=== PATIENT | female | born 1945 | race Caucasian/White ===

== ENCOUNTER 2018-07-03 09:06 | Inpatient (IN) | payer MEDICARE ==
[2018-07-03] VITALS (8 sets, daily range): BP systolic 123–168; BP diastolic 65–75
[~2018-07-03] VITALS: Ht 157.5 cm; Wt 58.7 kg
[~2018-07-03 09:06] MED LIST: ATEN100T PO; ATEN50TA41 PO; BUDE10.2 INH; DIAZ10TA4 PO; ESTR1PAT66 EXT; FURO20TA3 PO; HYDR-3237 PO; HYDR-3343 PO; LISI-170 PO; METO25TA91 PO; PANT20TA2 PO; PANT40TA5 PO; POTA20PA25 PO; POTA20TA14 PO; PRED10TA PO; PRED20TA PO; SERT50TA5 PO; UMEC1DIS INH
[2018-07-03] MEDS ORDERED: SODIUM CHLORIDE 0.9% 1,000 ML IV ONE (09:08)
[2018-07-03] MEDS ORDERED: SODIUM CHLORIDE FLUSH 10ML SYR IVF ONE (09:30)
[2018-07-03 09:52] LABS: INTERNATIONAL NORMALIZED RATIO 1.27 (0.93-1.1); PROTHROMBIN TIME 13.1 Seconds (9.6-11.5)
[2018-07-03 09:56] LABS: ALBUMIN 2.6 g/dL (3.4-5.0); ANION GAP 12 mmol/L (5-15); CALCIUM 8.8 mg/dL (8.5-10.1); CHLORIDE 103 mmol/L (98-107)
[2018-07-03] MEDS ORDERED: PANTOPRAZOLE 80 MG in SODIUM CHLORIDE 0.9% 50 ML IVPB ONE (10:00)
[2018-07-03 10:04] LABS: ALANINE AMINOTRANSFERASE 19 U/L (12-78); ALKALINE PHOSPHATASE 84 U/L (45-117); BILIRUBIN,TOTAL 0.5 mg/dL (0.2-1.0); CREATININE 1.51 mg/dL (0.55-1.02); TOTAL PROTEIN 6.3 g/dL (6.4-8.2)
[2018-07-03 10:06] LABS: MEAN CORPUSCULAR HEMOGLOBIN 25.3 pg (27.0-34.8); MEAN CORPUSCULAR HGB CONC 31.8 g/dL (32.4-35.8); MEAN CORPUSCULAR VOLUME 79.4 fL (80-100); MEAN PLATELET VOLUME 8.5 fL (7.4-10.4); PLATELET COUNT 456 x10^3/uL (130-400); RED BLOOD COUNT 3.27 x10^6/uL (3.82-5.3); RED CELL DISTRIBUTION WIDTH 22.7 % (9.6-15.2)
[2018-07-03] MEDS ORDERED: FURO20TA3 PO (10:06)
[2018-07-03] MEDS ORDERED: ALBU8.5H8 INH (10:06)
[2018-07-03] MEDS ORDERED: NAPR220C2 PO (10:23)
[2018-07-03 10:27] LABS: BASOPHILS # (AUTO) 0.02 x10^3/uL (0-0.1); BASOPHILS % (AUTO) 0 % (0-1); EOSINOPHILS # (AUTO) 0.19 x10^3/uL (0-0.4); EOSINOPHILS % (AUTO) 1 % (1-7); LYMPHOCYTES # (AUTO) 1.84 x10^3/uL (1-3.4); LYMPHOCYTES % (AUTO) 12 % (22-44); MD MORPH REVIEW ONLY; MONOCYTES # (AUTO) 0.54 x10^3/uL (0.2-0.8); MONOCYTES % (AUTO) 4 % (2-9); NEUTROPHILS # (AUTO) 12.43 x10^3/uL (1.8-6.8); NEUTROPHILS % (AUTO) 83 % (42-75)
[2018-07-03 10:30] LABS: ANISOCYTOSIS 1+; HYPOCHROMIA 1+; MICROCYTOSIS 1+
[2018-07-03] MEDS ORDERED: CEFTRIAXONE PMX 1GM/50ML 50 ML IV ONE (10:30)
[2018-07-03] MEDS ORDERED: PANTOPRAZOLE 80 MG in SODIUM CHLORIDE 0.9% 100 ML IV SCH (10:30)
[2018-07-03] MEDS ORDERED: SODIUM CHLORIDE 0.9%, 500ML IVBOLUS ONE (10:30)
[2018-07-03 10:31] LABS: <PLATELET ESTIMATE> INCREASED
[2018-07-03 10:32] LABS: LARGE PLATELETS 1+
[2018-07-03 10:33] LABS: OVALOCYTES 1+; STOMATOCYTES 1+
[2018-07-03] MEDS ORDERED: CEFTRIAXONE PMX 1GM/50ML 50 ML ONE (10:51)
[2018-07-03] MEDS ORDERED: ONDANSETRON ODT 4 MG PO PRN (12:30)
[2018-07-03] MEDS ORDERED: ONDANSETRON 2MG/ML, 2ML IVPush PRN (12:30)
[2018-07-03 13:49] LABS: THYROID STIMULATING HORMONE 2.19 mIU/L (0.358-3.740)
[2018-07-03] MEDS ORDERED: FENTANYL PF 100 MCG/2ML ONE ×2 (15:28→16:09)
[2018-07-03] MEDS ORDERED: PROPOFOL 10 MG/ML, 20ML ONE (15:28)
[2018-07-03] MEDS ORDERED: MIDAZOLAM 1 MG/ML, 2ML ONE (15:28)
[2018-07-03] MEDS ORDERED: OXYcodone 5 MG/5 ML ORAL.SOL UDC PO PRN (16:00)
[2018-07-03] MEDS ORDERED: MEPERIDINE/PF 25MG/0.5ML IVPush PRN (16:00)
[2018-07-03] MEDS ORDERED: HALOPERIDOL 5 MG/ML IV PRN (16:00)
[2018-07-03] MEDS ORDERED: ACETAMINOPHEN 325 MG TABLET PO PRN (16:00)
[2018-07-03] MEDS ORDERED: HYDROmorphone 2 MG/ML, 1ML IV PRN (16:00)
[2018-07-03] MEDS ORDERED: ONDANSETRON 2MG/ML, 2ML IV PRN (16:00)
[2018-07-03] MEDS: FENTANYL PF 100 MCG/2ML IV PRN ×2 (16:10→16:15)
[2018-07-03] MEDS ORDERED: HALOPERIDOL 5 MG/ML ONE (16:20)
[2018-07-03] MEDS ORDERED: LORazepam 2 MG/ML, 1ML ONE (16:20)
[2018-07-03] MEDS: CEFTRIAXONE 1,000 MG in SODIUM CHLORIDE 0.9% 50 ML IV SCH (20:55)
[2018-07-03] MEDS: NS + 20MEQ KCL 1,000 ML IV SCH (20:55)
[2018-07-04 02:13] VITALS: BP 136/65
[2018-07-04 06:01] LABS: CALCIUM 8.1 mg/dL (8.5-10.1); CHLORIDE 113 mmol/L (98-107)
[2018-07-04 06:04] LABS: ANION GAP 10 mmol/L (5-15)
[2018-07-04 06:06] LABS: MEAN CORPUSCULAR HEMOGLOBIN 28.2 pg (27.0-34.8); MEAN CORPUSCULAR HGB CONC 33.2 g/dL (32.4-35.8); MEAN CORPUSCULAR VOLUME 84.8 fL (80-100); MEAN PLATELET VOLUME 8.1 fL (7.4-10.4); PLATELET COUNT 277 x10^3/uL (130-400); RED BLOOD COUNT 2.97 x10^6/uL (3.82-5.3); RED CELL DISTRIBUTION WIDTH 18.2 % (9.6-15.2)
[2018-07-04 06:43] VITALS: BP 159/77
[2018-07-04 07:09] LABS: BASOPHILS # (AUTO) 0.01 x10^3/uL (0-0.1); BASOPHILS % (AUTO) 0 % (0-1); EOSINOPHILS # (AUTO) 0.08 x10^3/uL (0-0.4); EOSINOPHILS % (AUTO) 1 % (1-7); LYMPHOCYTES # (AUTO) 1.98 x10^3/uL (1-3.4); LYMPHOCYTES % (AUTO) 22 % (22-44); MD SCAN; MONOCYTES # (AUTO) 0.44 x10^3/uL (0.2-0.8); MONOCYTES % (AUTO) 5 % (2-9); NEUTROPHILS # (AUTO) 6.42 x10^3/uL (1.8-6.8); NEUTROPHILS % (AUTO) 72 % (42-75)
[2018-07-04] MEDS: NS + 20MEQ KCL 1,000 ML IV SCH (08:53)
[2018-07-04] MEDS ORDERED: PANTOPRAZOLE 80 MG in SODIUM CHLORIDE 0.9% 50 ML IV ONE (09:30)
[2018-07-04] MEDS ORDERED: MAGNESIUM SULFATE PMX 2GM/50ML 50 ML IV ONE (10:00)
[2018-07-04] MEDS: PANTOPRAZOLE 80 MG in SODIUM CHLORIDE 0.9% 100 ML IV SCH (11:11)
[2018-07-04 13:16] VITALS: BP 187/75
[2018-07-04] MEDS: ACETAMINOPHEN 325 MG TABLET PO PRN (14:37)
[2018-07-04 18:49] VITALS: BP 172/72
[2018-07-04 20:55] VITALS: BP 181/68
[2018-07-04] MEDS: CEFTRIAXONE 1,000 MG in SODIUM CHLORIDE 0.9% 50 ML IV SCH (21:00)
[2018-07-04] MEDS: hydrALAzine 20 MG/ML, 1ML IVPush PRN (21:00)
[2018-07-04 21:20] VITALS: BP 167/70
[2018-07-05 00:28] VITALS: BP 146/61
[2018-07-05] MEDS: NS + 20MEQ KCL 1,000 ML IV SCH ×3 (01:01→20:27)
[2018-07-05] MEDS: PANTOPRAZOLE 80 MG in SODIUM CHLORIDE 0.9% 100 ML IV SCH ×3 (01:02→20:27)
[2018-07-05 05:44] LABS: BASOPHILS # (AUTO) 0.01 x10^3/uL (0-0.1); BASOPHILS % (AUTO) 0 % (0-1); EOSINOPHILS % (AUTO) 4 % (1-7); LYMPHOCYTES # (AUTO) 1.59 x10^3/uL (1-3.4); LYMPHOCYTES % (AUTO) 21 % (22-44); MD NO; MEAN CORPUSCULAR HEMOGLOBIN 27.6 pg (27.0-34.8); MEAN CORPUSCULAR VOLUME 83.7 fL (80-100); MEAN PLATELET VOLUME 7.7 fL (7.4-10.4); MONOCYTES # (AUTO) 0.46 x10^3/uL (0.2-0.8); MONOCYTES % (AUTO) 6 % (2-9); NEUTROPHILS # (AUTO) 5.37 x10^3/uL (1.8-6.8); NEUTROPHILS % (AUTO) 70 % (42-75); PLATELET COUNT 298 x10^3/uL (130-400); RED BLOOD COUNT 2.98 x10^6/uL (3.82-5.3); RED CELL DISTRIBUTION WIDTH 19.7 % (9.6-15.2)
[2018-07-05 05:45] LABS: ALBUMIN 2.2 g/dL (3.4-5.0); ANION GAP 9 mmol/L (5-15); CHLORIDE 112 mmol/L (98-107); CREATININE 0.66 mg/dL (0.55-1.02)
[2018-07-05] MEDS ORDERED: SODIUM PHOSPHATE 4 MEQ/ML IV SCH (06:30)
[2018-07-05] MEDS ORDERED: SODIUM PHOSPHATE 30 MMOL in SODIUM CHLORIDE 0.9% 500 ML IV ONE (06:30)
[2018-07-05 06:51] VITALS: BP 151/65
[2018-07-05] MEDS: FOLIC ACID 1 MG TABLET PO SCH (09:03)
[2018-07-05] MEDS: THIAMINE 100MG TABLET PO SCH (09:03)
[2018-07-05 12:23] VITALS: BP 168/75
[2018-07-05 19:00] VITALS: BP 151/71
[2018-07-05] MEDS: CEFTRIAXONE 1,000 MG in SODIUM CHLORIDE 0.9% 50 ML IV SCH (20:27)
[2018-07-05] MEDS: ACETAMINOPHEN 325 MG TABLET PO PRN (21:48)
[2018-07-06] MEDS: LORazepam 2 MG/ML, 1ML IVPush PRN ×2 (02:39→09:10)
[2018-07-06] MEDS: ACETAMINOPHEN 325 MG TABLET PO PRN (04:57)
[2018-07-06 06:29] VITALS: BP 208/89
[2018-07-06] MEDS: hydrALAzine 20 MG/ML, 1ML IVPush PRN (06:42)
[2018-07-06 07:16] LABS: BASOPHILS # (AUTO) 0.05 x10^3/uL (0-0.1); BASOPHILS % (AUTO) 1 % (0-1); EOSINOPHILS # (AUTO) 0.12 x10^3/uL (0-0.4); EOSINOPHILS % (AUTO) 2 % (1-7); LYMPHOCYTES # (AUTO) 1.65 x10^3/uL (1-3.4); LYMPHOCYTES % (AUTO) 21 % (22-44); MD NO; MEAN CORPUSCULAR HEMOGLOBIN 27.7 pg (27.0-34.8); MEAN CORPUSCULAR HGB CONC 33.1 g/dL (32.4-35.8); MEAN CORPUSCULAR VOLUME 83.8 fL (80-100); MEAN PLATELET VOLUME 7.6 fL (7.4-10.4); MONOCYTES # (AUTO) 0.38 x10^3/uL (0.2-0.8); MONOCYTES % (AUTO) 5 % (2-9); NEUTROPHILS # (AUTO) 5.67 x10^3/uL (1.8-6.8); NEUTROPHILS % (AUTO) 72 % (42-75); PLATELET COUNT 284 x10^3/uL (130-400); RED BLOOD COUNT 3.07 x10^6/uL (3.82-5.3); RED CELL DISTRIBUTION WIDTH 18.7 % (9.6-15.2)
[2018-07-06 07:28] LABS: ALBUMIN 2.4 g/dL (3.4-5.0); ANION GAP 8 mmol/L (5-15); CALCIUM 8.3 mg/dL (8.5-10.1); CHLORIDE 113 mmol/L (98-107)
[2018-07-06 07:31] LABS: ALANINE AMINOTRANSFERASE 19 U/L (12-78); ALKALINE PHOSPHATASE 75 U/L (45-117); BILIRUBIN,TOTAL 0.8 mg/dL (0.2-1.0); CREATININE 0.63 mg/dL (0.55-1.02); TOTAL PROTEIN 6.1 g/dL (6.4-8.2)
[2018-07-06] MEDS: PANTOPRAZOLE 80 MG in SODIUM CHLORIDE 0.9% 100 ML IV SCH ×2 (07:32→18:34)
[2018-07-06 09:00] VITALS: BP 165/79
[2018-07-06] MEDS: THIAMINE 100MG TABLET PO SCH (09:00)
[2018-07-06] MEDS: FOLIC ACID 1 MG TABLET PO SCH (09:09)
[2018-07-06] MEDS: NS + 20MEQ KCL 1,000 ML IV SCH (09:10)
[2018-07-06] MEDS ORDERED: HALOPERIDOL 5 MG/ML IM ONE (11:30)
[2018-07-06 12:09] VITALS: BP 171/77
[2018-07-06] MEDS: LABETALOL 5MG/ML, 20ML IVPush PRN (13:08)
[2018-07-06] MEDS ORDERED: LORazepam 2 MG/ML, 1ML IV PRN ×4 (14:30)
[2018-07-06] MEDS ORDERED: LORazepam 1MG TABLET PO PRN ×4 (14:30)
[2018-07-06] MEDS: LORazepam 0.5MG TABLET PO PRN ×2 (15:29→23:35)
[2018-07-06 16:14] VITALS: BP 168/80
[2018-07-06] MEDS: LORazepam 2 MG/ML, 1ML IV PRN (17:58)
[2018-07-06 19:26] VITALS: BP 114/71
[2018-07-06] MEDS: POTASSIUM CHLORIDE 20 MEQ, MAGNESIUM SULFATE 1 GM, FOLIC ACID 1 MG, THIAMINE 200 MG, MV... IV SCH ×3 (20:57→22:54)
[2018-07-06] MEDS: CEFTRIAXONE 1,000 MG in SODIUM CHLORIDE 0.9% 50 ML IV SCH (20:58)
[2018-07-07] VITALS (8 sets, daily range): BP systolic 132–227; BP diastolic 57–96
[2018-07-07] MEDS: LABETALOL 5MG/ML, 20ML IVPush PRN (02:57)
[2018-07-07] MEDS: PANTOPRAZOLE 80 MG in SODIUM CHLORIDE 0.9% 100 ML IV SCH ×2 (04:02→22:03)
[2018-07-07] MEDS: LORazepam 0.5MG TABLET PO PRN (04:02)
[2018-07-07] MEDS: hydrALAzine 20 MG/ML, 1ML IVPush PRN (06:40)
[2018-07-07] MEDS: FOLIC ACID 1 MG TABLET PO SCH (08:30)
[2018-07-07] MEDS: THIAMINE 100MG TABLET PO SCH (08:31)
[2018-07-07] MEDS ORDERED: PANTOPRAZOLE 40 MG IV IVPush SCH (09:00)
[2018-07-07] MEDS ORDERED: CHLORDIAZEPOXIDE 25 MG CAPSULE PO PRN (09:00)
[2018-07-07 09:03] LABS: BASOPHILS # (AUTO) 0.02 x10^3/uL (0-0.1); BASOPHILS % (AUTO) 0 % (0-1); EOSINOPHILS # (AUTO) 0.12 x10^3/uL (0-0.4); EOSINOPHILS % (AUTO) 1 % (1-7); LYMPHOCYTES # (AUTO) 1.35 x10^3/uL (1-3.4); LYMPHOCYTES % (AUTO) 15 % (22-44); MD NO; MEAN CORPUSCULAR HEMOGLOBIN 27.8 pg (27.0-34.8); MEAN CORPUSCULAR HGB CONC 33.2 g/dL (32.4-35.8); MEAN CORPUSCULAR VOLUME 83.9 fL (80-100); MEAN PLATELET VOLUME 7.6 fL (7.4-10.4); MONOCYTES # (AUTO) 0.33 x10^3/uL (0.2-0.8); MONOCYTES % (AUTO) 4 % (2-9); NEUTROPHILS % (AUTO) 80 % (42-75); PLATELET COUNT 378 x10^3/uL (130-400); RED BLOOD COUNT 4.21 x10^6/uL (3.82-5.3); RED CELL DISTRIBUTION WIDTH 19.8 % (9.6-15.2)
[2018-07-07 09:11] LABS: ALBUMIN 2.9 g/dL (3.4-5.0); ANION GAP 9 mmol/L (5-15); CALCIUM 9.1 mg/dL (8.5-10.1); CHLORIDE 113 mmol/L (98-107); CREATININE 0.85 mg/dL (0.55-1.02)
[2018-07-07] MEDS ORDERED: PANTOPROZOLE 40MG TABLET PO SCH (17:00)
[2018-07-07] MEDS: POTASSIUM CHLORIDE 20 MEQ, MAGNESIUM SULFATE 1 GM, FOLIC ACID 1 MG, THIAMINE 200 MG, MV... IV SCH (17:34)
[2018-07-07] MEDS ORDERED: SODIUM CHLORIDE 0.9% 1,000 ML IVBOLUS PRN (21:35)
[2018-07-07] MEDS: CEFTRIAXONE 1,000 MG in SODIUM CHLORIDE 0.9% 50 ML IV SCH (22:57)
[2018-07-08 00:12] VITALS: BP 125/48
[2018-07-08 01:40] VITALS: BP 126/64
[2018-07-08 01:56] VITALS: BP 132/68
[2018-07-08 02:10] VITALS: BP 140/88
[2018-07-08 04:00] VITALS: BP_SYST 130; BP_SYST 154; BP_DIAS 59; BP_DIAS 70
[2018-07-08] MEDS: LORazepam 2 MG/ML, 1ML IV PRN (04:32)
[2018-07-08] MEDS ORDERED: ALBUTEROL/IPRATROPIUM 2.5MG/0.5MG, 3 ML NPPB PRN (05:00)
[2018-07-08] MEDS ORDERED: ALBUTEROL SULFATE 2.5 MG/3 ML NPPB PRN (05:00)
[2018-07-08] MEDS: PANTOPRAZOLE 80 MG in SODIUM CHLORIDE 0.9% 100 ML IV SCH ×2 (06:24→17:36)
[2018-07-08] MEDS: hydrALAzine 20 MG/ML, 1ML IVPush PRN ×3 (06:32→18:37)
[2018-07-08] MEDS: SUCRALFATE 1 GM/10 ML UDC PO SCH ×4 (07:30→20:24)
[2018-07-08] MEDS: THIAMINE 100MG TABLET PO SCH (09:00)
[2018-07-08] MEDS: FOLIC ACID 1 MG TABLET PO SCH (09:00)
[2018-07-08] MEDS: ZIPRASIDONE 20 MG INJ IM PRN ×2 (11:50→14:15)
[2018-07-08] MEDS: LABETALOL 5MG/ML, 20ML IVPush PRN (22:13)
[2018-07-09] MEDS: PANTOPRAZOLE 80 MG in SODIUM CHLORIDE 0.9% 100 ML IV SCH ×2 (03:47→14:49)
[2018-07-09 04:00] VITALS: BP 171/65
[2018-07-09] MEDS: LABETALOL 5MG/ML, 20ML IVPush PRN ×3 (05:05→15:06)
[2018-07-09] MEDS: FOLIC ACID 1 MG TABLET PO SCH (08:09)
[2018-07-09] MEDS: SUCRALFATE 1 GM/10 ML UDC PO SCH ×4 (08:09→20:12)
[2018-07-09] MEDS: ZIPRASIDONE 20 MG INJ IM PRN ×2 (08:10→13:48)
[2018-07-09] MEDS: THIAMINE 100MG TABLET PO SCH (08:10)
[2018-07-09 08:15] LABS: BASOPHILS # (AUTO) 0.18 x10^3/uL (0-0.1); BASOPHILS % (AUTO) 2 % (0-1); EOSINOPHILS # (AUTO) 0.29 x10^3/uL (0-0.4); EOSINOPHILS % (AUTO) 2 % (1-7); LYMPHOCYTES # (AUTO) 1.48 x10^3/uL (1-3.4); LYMPHOCYTES % (AUTO) 13 % (22-44); MD NO; MEAN CORPUSCULAR HEMOGLOBIN 28.9 pg (27.0-34.8); MEAN CORPUSCULAR HGB CONC 33.4 g/dL (32.4-35.8); MEAN CORPUSCULAR VOLUME 86.6 fL (80-100); MEAN PLATELET VOLUME 8.4 fL (7.4-10.4); MONOCYTES # (AUTO) 0.73 x10^3/uL (0.2-0.8); MONOCYTES % (AUTO) 6 % (2-9); NEUTROPHILS # (AUTO) 9.11 x10^3/uL (1.8-6.8); NEUTROPHILS % (AUTO) 77 % (42-75); PLATELET COUNT 300 x10^3/uL (130-400); RED BLOOD COUNT 3.42 x10^6/uL (3.82-5.3)
[2018-07-09] MEDS: hydrALAzine 20 MG/ML, 1ML IVPush PRN ×2 (10:37→16:51)
[2018-07-10] MEDS: PANTOPRAZOLE 80 MG in SODIUM CHLORIDE 0.9% 100 ML IV SCH (01:43)
[2018-07-10 04:00] VITALS: BP 147/63
[2018-07-10] MEDS: LABETALOL 5MG/ML, 20ML IVPush PRN (05:16)
[2018-07-10] MEDS: THIAMINE 100MG TABLET PO SCH (10:04)
[2018-07-10] MEDS: FOLIC ACID 1 MG TABLET PO SCH (10:04)
[2018-07-10] MEDS: SUCRALFATE 1 GM/10 ML UDC PO SCH ×4 (10:05→21:21)
[2018-07-10] MEDS: PANTOPROZOLE 40MG TABLET PO SCH (17:16)
[2018-07-10 19:25] VITALS: BP 136/66
[2018-07-11 01:30] VITALS: BP 105/62
[2018-07-11 02:35] LABS: BASOPHILS # (AUTO) 0.07 x10^3/uL (0-0.1); BASOPHILS % (AUTO) 1 % (0-1); EOSINOPHILS # (AUTO) 0.23 x10^3/uL (0-0.4); EOSINOPHILS % (AUTO) 2 % (1-7); LYMPHOCYTES # (AUTO) 1.89 x10^3/uL (1-3.4); LYMPHOCYTES % (AUTO) 16 % (22-44); MD NO; MEAN CORPUSCULAR HEMOGLOBIN 29.4 pg (27.0-34.8); MEAN CORPUSCULAR HGB CONC 33.4 g/dL (32.4-35.8); MEAN CORPUSCULAR VOLUME 88.1 fL (80-100); MONOCYTES # (AUTO) 0.98 x10^3/uL (0.2-0.8); MONOCYTES % (AUTO) 8 % (2-9); NEUTROPHILS # (AUTO) 9.05 x10^3/uL (1.8-6.8); NEUTROPHILS % (AUTO) 74 % (42-75); PLATELET COUNT 399 x10^3/uL (130-400); RED BLOOD COUNT 2.74 x10^6/uL (3.82-5.3); RED CELL DISTRIBUTION WIDTH 16.7 % (9.6-15.2)
[2018-07-11] MEDS: PANTOPROZOLE 40MG TABLET PO SCH (04:00)
[2018-07-11 05:33] VITALS: BP 144/74
[2018-07-11] MEDS: SUCRALFATE 1 GM/10 ML UDC PO SCH ×4 (07:00→20:01)
[2018-07-11 08:18] VITALS: BP 165/78
[2018-07-11 08:45] LABS: BASOPHILS # (AUTO) 0.03 x10^3/uL (0-0.1); BASOPHILS % (AUTO) 0 % (0-1); EOSINOPHILS # (AUTO) 0.28 x10^3/uL (0-0.4); EOSINOPHILS % (AUTO) 3 % (1-7); LYMPHOCYTES % (AUTO) 13 % (22-44); MD NO; MEAN CORPUSCULAR HEMOGLOBIN 28.9 pg (27.0-34.8); MEAN CORPUSCULAR HGB CONC 33.2 g/dL (32.4-35.8); MEAN CORPUSCULAR VOLUME 87.1 fL (80-100); MONOCYTES # (AUTO) 0.58 x10^3/uL (0.2-0.8); MONOCYTES % (AUTO) 6 % (2-9); NEUTROPHILS # (AUTO) 8.06 x10^3/uL (1.8-6.8); NEUTROPHILS % (AUTO) 79 % (42-75); PLATELET COUNT 395 x10^3/uL (130-400); RED BLOOD COUNT 2.79 x10^6/uL (3.82-5.3); RED CELL DISTRIBUTION WIDTH 17.4 % (9.6-15.2)
[2018-07-11] MEDS: PANTOPRAZOLE 40 MG IV IVPush SCH ×2 (08:56→20:01)
[2018-07-11 08:57] LABS: ALBUMIN 2.3 g/dL (3.4-5.0); ANION GAP 14 mmol/L (5-15); CALCIUM 8.5 mg/dL (8.5-10.1); CHLORIDE 114 mmol/L (98-107)
[2018-07-11 09:00] LABS: ALANINE AMINOTRANSFERASE 15 U/L (12-78); ALKALINE PHOSPHATASE 65 U/L (45-117); BILIRUBIN,TOTAL 0.5 mg/dL (0.2-1.0); CREATININE 1.04 mg/dL (0.55-1.02); TOTAL PROTEIN 5.5 g/dL (6.4-8.2)
[2018-07-11] MEDS: FOLIC ACID 1 MG TABLET PO SCH (09:00)
[2018-07-11] MEDS: THIAMINE 100MG TABLET PO SCH (09:00)
[2018-07-11 12:06] VITALS: BP 178/73
[2018-07-11] MEDS: DEXTROSE 5% 1,000 ML IV SCH (17:52)
[2018-07-11 19:51] VITALS: BP 152/60
[2018-07-12] VITALS (10 sets, daily range): BP systolic 109–164; BP diastolic 51–73
[2018-07-12 05:38] LABS: ALBUMIN 2.3 g/dL (3.4-5.0); ANION GAP 9 mmol/L (5-15); CALCIUM 8.5 mg/dL (8.5-10.1); CHLORIDE 110 mmol/L (98-107)
[2018-07-12 05:41] LABS: ALANINE AMINOTRANSFERASE 16 U/L (12-78); ALKALINE PHOSPHATASE 61 U/L (45-117); BILIRUBIN,TOTAL 0.7 mg/dL (0.2-1.0); CREATININE 0.96 mg/dL (0.55-1.02); TOTAL PROTEIN 5.8 g/dL (6.4-8.2)
[2018-07-12 05:56] LABS: MEAN CORPUSCULAR HEMOGLOBIN 29.3 pg (27.0-34.8); MEAN CORPUSCULAR HGB CONC 33.6 g/dL (32.4-35.8); MEAN CORPUSCULAR VOLUME 87.2 fL (80-100); MEAN PLATELET VOLUME 8.3 fL (7.4-10.4); PLATELET COUNT 437 x10^3/uL (130-400); RED BLOOD COUNT 2.44 x10^6/uL (3.82-5.3); RED CELL DISTRIBUTION WIDTH 17.1 % (9.6-15.2)
[2018-07-12 06:44] LABS: BASOPHILS # (AUTO) 0.05 x10^3/uL (0-0.1); BASOPHILS % (AUTO) 0 % (0-1); EOSINOPHILS % (AUTO) 2 % (1-7); LYMPHOCYTES % (AUTO) 15 % (22-44); MD SCAN; MONOCYTES # (AUTO) 0.75 x10^3/uL (0.2-0.8); MONOCYTES % (AUTO) 7 % (2-9); NEUTROPHILS # (AUTO) 8.94 x10^3/uL (1.8-6.8); NEUTROPHILS % (AUTO) 77 % (42-75)
[2018-07-12] MEDS ORDERED: MAGNESIUM SULFATE 4 GM in SODIUM CHLORIDE 0.9% 100 ML IV ONE ×2 (07:30→21:30)
[2018-07-12] MEDS ORDERED: MAGNESIUM SULFATE PMX 4GM/100M 100 ML IVPB ONE (07:30)
[2018-07-12] MEDS ORDERED: POTASSIUM PHOSPHATE 44 MEQ in SODIUM CHLORIDE 0.9% 500 ML IV ONE (07:30)
[2018-07-12] MEDS: PANTOPRAZOLE 40 MG IV IVPush SCH ×2 (07:38→21:56)
[2018-07-12] MEDS: THIAMINE 100MG TABLET PO SCH (07:38)
[2018-07-12] MEDS: FOLIC ACID 1 MG TABLET PO SCH (07:38)
[2018-07-12] MEDS: SUCRALFATE 1 GM/10 ML UDC PO SCH ×4 (07:38→21:55)
[2018-07-12] MEDS: ZIPRASIDONE 20 MG INJ IM PRN (12:34)
[2018-07-12 15:18] LABS: INTERNATIONAL NORMALIZED RATIO 1.08 (0.93-1.1); PROTHROMBIN TIME 11.2 Seconds (9.6-11.5)
[2018-07-12] MEDS ORDERED: LIDOCAINE-MPF 2%, 2ML ONE (15:36)
[2018-07-12] MEDS ORDERED: NOREPINEPHRINE 1 MG/ML, 4ML ONE (17:27)
[2018-07-12] MEDS ORDERED: NOREPINEPHRINE 4 MG in SODIUM CHLORIDE 0.9% 246 ML IV PRN (17:30)
[2018-07-12] MEDS ORDERED: FENTANYL PF 100 MCG/2ML ONE (17:55)
[2018-07-12] MEDS ORDERED: VISIPAQUE 270 MG/ML, 150ML BOTTLE ONE (18:12)
[2018-07-12] MEDS ORDERED: VISIPAQUE 270 MG/ML, 50ML BOTTLE ONE (18:12)
[2018-07-12] MEDS: DEXTROSE 5% 1,000 ML IV SCH (20:00)
[2018-07-12] MEDS: FENTANYL PF 100 MCG/2ML IVPush PRN (21:55)
[2018-07-12] MEDS: SODIUM CHLORIDE 0.9% 1,000 ML IV SCH (21:56)
[2018-07-12] MEDS: hydrALAzine 20 MG/ML, 1ML IVPush PRN (23:07)
[2018-07-13] MEDS: FENTANYL PF 100 MCG/2ML IVPush PRN ×3 (00:30→16:14)
[2018-07-13 04:32] LABS: MEAN CORPUSCULAR HEMOGLOBIN 29.8 pg (27.0-34.8); MEAN CORPUSCULAR VOLUME 87.6 fL (80-100); MEAN PLATELET VOLUME 8.4 fL (7.4-10.4); PLATELET COUNT 273 x10^3/uL (130-400); RED BLOOD COUNT 3.21 x10^6/uL (3.82-5.3); RED CELL DISTRIBUTION WIDTH 15.4 % (9.6-15.2)
[2018-07-13 04:43] LABS: ANION GAP 11 mmol/L (5-15); CALCIUM 7.5 mg/dL (8.5-10.1); CHLORIDE 116 mmol/L (98-107)
[2018-07-13 04:45] LABS: CREATININE 1.13 mg/dL (0.55-1.02)
[2018-07-13 05:43] LABS: BASOPHILS # (AUTO) 0.01 x10^3/uL (0-0.1); BASOPHILS % (AUTO) 0 % (0-1); EOSINOPHILS % (AUTO) 0 % (1-7); LYMPHOCYTES # (AUTO) 1.34 x10^3/uL (1-3.4); LYMPHOCYTES % (AUTO) 8 % (22-44); MD SCAN; MONOCYTES % (AUTO) 5 % (2-9); NEUTROPHILS # (AUTO) 15.77 x10^3/uL (1.8-6.8); NEUTROPHILS % (AUTO) 88 % (42-75)
[2018-07-13] MEDS: hydrALAzine 20 MG/ML, 1ML IVPush PRN (05:52)
[2018-07-13] MEDS: SUCRALFATE 1 GM/10 ML UDC PO SCH ×4 (07:00→20:16)
[2018-07-13] MEDS: FOLIC ACID 1 MG TABLET PO SCH (09:00)
[2018-07-13] MEDS: THIAMINE 100MG TABLET PO SCH (09:00)
[2018-07-13] MEDS: LABETALOL 5MG/ML, 20ML IVPush PRN (09:23)
[2018-07-13] MEDS: PANTOPRAZOLE 40 MG IV IVPush SCH ×2 (09:23→20:17)
[2018-07-13] MEDS ORDERED: PROPOFOL 10 MG/ML, 20ML ONE (09:27)
[2018-07-13] MEDS ORDERED: ROCURONIUM 10MG/ML,5ML ONE (09:27)
[2018-07-13] MEDS ORDERED: MIDAZOLAM 1 MG/ML, 2ML ONE (09:27)
[2018-07-13] MEDS ORDERED: FENTANYL PF 250 MCG/5ML ONE (09:27)
[2018-07-13] MEDS ORDERED: BUPIVACAINE/PF-EPI 0.5% 1:200K ONE (09:44)
[2018-07-13] MEDS ORDERED: THROMBIN 5,000 UNIT VIAL TP ONE (09:44)
[2018-07-13] MEDS ORDERED: BACITRACIN 50,000 UNIT ONE (09:45)
[2018-07-13] MEDS ORDERED: HEPARIN 1,000 UNITS/ML, 10ML ONE (09:45)
[2018-07-13] MEDS ORDERED: PROTAMINE SULFATE 10 MG/ML, 5ML ONE (10:00)
[2018-07-13] MEDS ORDERED: PAPAVERINE 30 MG/ML, 2ML ONE (10:00)
[2018-07-13] MEDS ORDERED: EPINEPHRINE SYRINGE 0.1 MG/ML, 10ML ONE (10:31)
[2018-07-13] MEDS ORDERED: BUPIVACAINE/PF-EPI 0.5% 1:200K IM ONE (11:00)
[2018-07-13] MEDS ORDERED: SUGAMMADEX 200 MG/2 ML IVPush ONE (11:13)
[2018-07-13] MEDS ORDERED: DEXAMETHASONE 4 MG/ML, 1ML ONE ×2 (11:25)
[2018-07-13] MEDS ORDERED: CEFAZOLIN 1,000 MG ONE ×2 (11:25)
[2018-07-13] MEDS ORDERED: LIDOCAINE JELLY 2%, 30GM ONE (11:25)
[2018-07-13] MEDS ORDERED: ONDANSETRON 2MG/ML, 2ML ONE (11:29)
[2018-07-13] MEDS ORDERED: EPHEDRINE 50 MG/ML, 1ML IVPush PRN (12:00)
[2018-07-13] MEDS ORDERED: MIDAZOLAM 1 MG/ML, 2ML IV PRN (12:00)
[2018-07-13] MEDS ORDERED: ALBUTEROL SULFATE 2.5 MG/3 ML NPPB PRN (12:00)
[2018-07-13] MEDS ORDERED: hydrALAzine 20 MG/ML, 1ML IV PRN (12:00)
[2018-07-13] MEDS ORDERED: MEPERIDINE/PF 25MG/0.5ML IVPush PRN (12:00)
[2018-07-13] MEDS ORDERED: OXYcodone 5 MG/5 ML ORAL.SOL UDC PO PRN (12:00)
[2018-07-13] MEDS ORDERED: LORazepam 2 MG/ML, 1ML IVPush PRN (12:00)
[2018-07-13] MEDS ORDERED: ONDANSETRON 2MG/ML, 2ML IV PRN ×2 (12:00→22:30)
[2018-07-13] MEDS ORDERED: PROMETHAZINE 12.5 MG SUPP PR PRN (12:00)
[2018-07-13] MEDS ORDERED: PROMETHAZINE 25 MG/ML, 1ML IV PRN (12:00)
[2018-07-13] MEDS ORDERED: LABETALOL 5MG/ML, 20ML IV PRN (12:00)
[2018-07-13] MEDS ORDERED: HYDROmorphone 1 MG/ML, 1ML IV PRN ×2 (12:00→22:30)
[2018-07-13] MEDS ORDERED: FENTANYL PF 100 MCG/2ML IV PRN (12:00)
[2018-07-13] MEDS ORDERED: ONDANSETRON ODT 8 MG PO PRN (12:00)
[2018-07-13] MEDS ORDERED: MORPHINE SULFATE 4 MG/ML, 1ML IVPush PRN (12:00)
[2018-07-13] MEDS: SODIUM CHLORIDE 0.9% 1,000 ML IV SCH (16:14)
[2018-07-13] MEDS ORDERED: SODIUM CHLORIDE 0.9%, 500ML IVBOLUS ONE (20:00)
[2018-07-13 21:54] VITALS: BP 157/56
[2018-07-13 22:10] VITALS: BP 161/64
[2018-07-13] MEDS ORDERED: morphine SULFATE 10 MG/ML, 1ML IV PRN (22:30)
[2018-07-13] MEDS ORDERED: LORazepam 2 MG/ML, 1ML IV PRN (22:30)
[2018-07-13] MEDS ORDERED: HYDROcodone/APAP 5/325 TABLET PO PRN (22:30)
[2018-07-13] MEDS ORDERED: ONDANSETRON ODT 4 MG PO PRN (22:30)
[2018-07-13] MEDS: POTASSIUM CHLORIDE 20 MEQ in D5%-0.45% NACL 1,000 ML IV SCH (22:31)
[2018-07-13] MEDS: CEFOTETAN PMX 1GM/50ML 50 ML IVPB SCH (22:31)
[2018-07-13 23:23] VITALS: BP 148/49
[2018-07-14] VITALS (7 sets, daily range): BP systolic 138–176; BP diastolic 50–75
[2018-07-14] MEDS: FENTANYL PF 100 MCG/2ML IVPush PRN (04:44)
[2018-07-14 04:47] LABS: ALBUMIN 1.8 g/dL (3.4-5.0); ANION GAP 7 mmol/L (5-15); CALCIUM 7.2 mg/dL (8.5-10.1); CHLORIDE 119 mmol/L (98-107)
[2018-07-14 04:52] LABS: ALANINE AMINOTRANSFERASE 113 U/L (12-78); ALKALINE PHOSPHATASE 48 U/L (45-117); BILIRUBIN,TOTAL 0.5 mg/dL (0.2-1.0); CREATININE 1.11 mg/dL (0.55-1.02); TOTAL PROTEIN 4.5 g/dL (6.4-8.2)
[2018-07-14 05:03] LABS: BASOPHILS # (AUTO) 0.01 x10^3/uL (0-0.1); BASOPHILS % (AUTO) 0 % (0-1); EOSINOPHILS % (AUTO) 0 % (1-7); LYMPHOCYTES # (AUTO) 0.55 x10^3/uL (1-3.4); LYMPHOCYTES % (AUTO) 3 % (22-44); MD NO; MEAN CORPUSCULAR HEMOGLOBIN 30.2 pg (27.0-34.8); MEAN CORPUSCULAR HGB CONC 33.9 g/dL (32.4-35.8); MEAN CORPUSCULAR VOLUME 88.8 fL (80-100); MEAN PLATELET VOLUME 8.4 fL (7.4-10.4); MONOCYTES # (AUTO) 0.84 x10^3/uL (0.2-0.8); MONOCYTES % (AUTO) 5 % (2-9); NEUTROPHILS # (AUTO) 14.92 x10^3/uL (1.8-6.8); NEUTROPHILS % (AUTO) 92 % (42-75); PLATELET COUNT 204 x10^3/uL (130-400); RED BLOOD COUNT 2.63 x10^6/uL (3.82-5.3); RED CELL DISTRIBUTION WIDTH 16.2 % (9.6-15.2)
[2018-07-14] MEDS: SODIUM CHLORIDE 0.9% 1,000 ML IV SCH ×2 (05:20→23:22)
[2018-07-14] MEDS: LABETALOL 5MG/ML, 20ML IVPush PRN ×2 (06:31→15:08)
[2018-07-14] MEDS: POTASSIUM CHLORIDE 20 MEQ in D5%-0.45% NACL 1,000 ML IV SCH (06:35)
[2018-07-14] MEDS: PANTOPRAZOLE 40 MG IV IVPush SCH ×2 (10:01→21:35)
[2018-07-14] MEDS: CEFOTETAN PMX 1GM/50ML 50 ML IVPB SCH (10:02)
[2018-07-14] MEDS: FOLIC ACID 1 MG TABLET PO SCH (10:14)
[2018-07-14] MEDS: THIAMINE 100MG TABLET PO SCH (10:14)
[2018-07-14] MEDS: SUCRALFATE 1 GM/10 ML UDC PO SCH ×4 (10:15→21:35)
[2018-07-15] VITALS (7 sets, daily range): BP systolic 160–194; BP diastolic 61–73
[2018-07-15 05:58] LABS: CHLORIDE 118 mmol/L (98-107)
[2018-07-15 05:59] LABS: BASOPHILS # (AUTO) 0.01 x10^3/uL (0-0.1); BASOPHILS % (AUTO) 0 % (0-1); EOSINOPHILS # (AUTO) 0.02 x10^3/uL (0-0.4); EOSINOPHILS % (AUTO) 0 % (1-7); LYMPHOCYTES # (AUTO) 0.78 x10^3/uL (1-3.4); LYMPHOCYTES % (AUTO) 6 % (22-44); MD NO; MEAN CORPUSCULAR HEMOGLOBIN 29.8 pg (27.0-34.8); MEAN CORPUSCULAR HGB CONC 33.5 g/dL (32.4-35.8); MEAN CORPUSCULAR VOLUME 89.2 fL (80-100); MEAN PLATELET VOLUME 8.5 fL (7.4-10.4); MONOCYTES # (AUTO) 0.83 x10^3/uL (0.2-0.8); MONOCYTES % (AUTO) 6 % (2-9); NEUTROPHILS # (AUTO) 12.05 x10^3/uL (1.8-6.8); NEUTROPHILS % (AUTO) 88 % (42-75); PLATELET COUNT 181 x10^3/uL (130-400); RED CELL DISTRIBUTION WIDTH 16.8 % (9.6-15.2)
[2018-07-15 06:21] LABS: ALANINE AMINOTRANSFERASE 182 U/L (12-78); ALBUMIN 1.7 g/dL (3.4-5.0); ALKALINE PHOSPHATASE 50 U/L (45-117); ANION GAP 9 mmol/L (5-15); BILIRUBIN,TOTAL 0.4 mg/dL (0.2-1.0); CALCIUM 7.5 mg/dL (8.5-10.1); CREATININE 0.84 mg/dL (0.55-1.02); TOTAL PROTEIN 4.5 g/dL (6.4-8.2)
[2018-07-15] MEDS: SUCRALFATE 1 GM/10 ML UDC PO SCH ×4 (07:00→20:52)
[2018-07-15] MEDS: FOLIC ACID 1 MG TABLET PO SCH (08:18)
[2018-07-15] MEDS: PANTOPRAZOLE 40 MG IV IVPush SCH ×2 (08:18→20:25)
[2018-07-15] MEDS: THIAMINE 100MG TABLET PO SCH (08:18)
[2018-07-15] MEDS: SODIUM CHLORIDE 0.9% 1,000 ML IV SCH (12:01)
[2018-07-15] MEDS: hydrALAzine 20 MG/ML, 1ML IVPush PRN (17:05)
[2018-07-16 01:23] VITALS: BP 167/67
[2018-07-16] MEDS: SODIUM CHLORIDE 0.9% 1,000 ML IV SCH ×2 (01:40→16:21)
[2018-07-16 05:40] LABS: ANION GAP 11 mmol/L (5-15); CALCIUM 7.5 mg/dL (8.5-10.1); CHLORIDE 114 mmol/L (98-107); CREATININE 0.64 mg/dL (0.55-1.02)
[2018-07-16 05:46] LABS: MEAN CORPUSCULAR HEMOGLOBIN 29.5 pg (27.0-34.8); MEAN CORPUSCULAR HGB CONC 32.9 g/dL (32.4-35.8); MEAN CORPUSCULAR VOLUME 89.6 fL (80-100); MEAN PLATELET VOLUME 8.9 fL (7.4-10.4); PLATELET COUNT 194 x10^3/uL (130-400); RED BLOOD COUNT 2.92 x10^6/uL (3.82-5.3); RED CELL DISTRIBUTION WIDTH 16.3 % (9.6-15.2)
[2018-07-16 06:21] LABS: MD SCAN
[2018-07-16 06:22] LABS: BASOPHILS # (AUTO) 0.01 x10^3/uL (0-0.1); BASOPHILS % (AUTO) 0 % (0-1); EOSINOPHILS # (AUTO) 0.02 x10^3/uL (0-0.4); EOSINOPHILS % (AUTO) 0 % (1-7); LYMPHOCYTES # (AUTO) 0.64 x10^3/uL (1-3.4); LYMPHOCYTES % (AUTO) 4 % (22-44); MONOCYTES # (AUTO) 0.86 x10^3/uL (0.2-0.8); MONOCYTES % (AUTO) 5 % (2-9); NEUTROPHILS # (AUTO) 15.26 x10^3/uL (1.8-6.8); NEUTROPHILS % (AUTO) 91 % (42-75)
[2018-07-16 08:07] VITALS: BP 132/70
[2018-07-16] MEDS: THIAMINE 100MG TABLET PO SCH (08:09)
[2018-07-16] MEDS: FOLIC ACID 1 MG TABLET PO SCH (08:09)
[2018-07-16] MEDS: SUCRALFATE 1 GM/10 ML UDC PO SCH ×4 (08:09→21:32)
[2018-07-16 08:10] VITALS: BP 186/72
[2018-07-16] MEDS: PANTOPRAZOLE 40 MG IV IVPush SCH (08:10)
[2018-07-16] MEDS: hydrALAzine 20 MG/ML, 1ML IVPush PRN ×2 (08:10→16:36)
[2018-07-16] MEDS ORDERED: POTASSIUM CHLORIDE 20 MEQ TAB.ER.PRT PO ONE (12:30)
[2018-07-16] MEDS ORDERED: MAGNESIUM SULFATE PMX 2GM/50ML 50 ML IV ONE (12:30)
[2018-07-16] MEDS ORDERED: SODIUM PHOSPHATE 20 MMOL in SODIUM CHLORIDE 0.9% 500 ML IV ONE (12:30)
[2018-07-16 13:00] VITALS: BP 185/65
[2018-07-16] MEDS: PANTOPROZOLE 40MG TABLET PO SCH (14:05)
[2018-07-16 16:36] VITALS: BP 173/69
[2018-07-16 20:00] VITALS: BP 179/86
[2018-07-16] MEDS: LORazepam 1MG TABLET PO PRN (21:32)
[2018-07-17] MEDS: PANTOPROZOLE 40MG TABLET PO SCH ×2 (01:11→12:22)
[2018-07-17] MEDS: LABETALOL 5MG/ML, 20ML IVPush PRN (01:13)
[2018-07-17 02:00] VITALS: BP 183/75
[2018-07-17] MEDS: SODIUM CHLORIDE 0.9% 1,000 ML IV SCH ×2 (04:20→21:51)
[2018-07-17 06:31] LABS: MEAN CORPUSCULAR HEMOGLOBIN 30.4 pg (27.0-34.8); MEAN CORPUSCULAR HGB CONC 34.7 g/dL (32.4-35.8); MEAN CORPUSCULAR VOLUME 87.6 fL (80-100); MEAN PLATELET VOLUME 8.3 fL (7.4-10.4); PLATELET COUNT 211 x10^3/uL (130-400); RED BLOOD COUNT 2.72 x10^6/uL (3.82-5.3); RED CELL DISTRIBUTION WIDTH 16.5 % (9.6-15.2)
[2018-07-17] MEDS: SUCRALFATE 1 GM/10 ML UDC PO SCH ×4 (06:37→20:38)
[2018-07-17 06:45] LABS: ANION GAP 10 mmol/L (5-15); CALCIUM 7.1 mg/dL (8.5-10.1); CHLORIDE 111 mmol/L (98-107); CREATININE 0.64 mg/dL (0.55-1.02)
[2018-07-17] MEDS ORDERED: POTASSIUM CHLORIDE 40 MEQ in SODIUM CHLORIDE 0.9% 500 ML IV ONE (07:00)
[2018-07-17 07:13] LABS: BASOPHILS # (AUTO) 0.04 x10^3/uL (0-0.1); BASOPHILS % (AUTO) 0 % (0-1); EOSINOPHILS # (AUTO) 0.03 x10^3/uL (0-0.4); EOSINOPHILS % (AUTO) 0 % (1-7); LYMPHOCYTES % (AUTO) 3 % (22-44); MD SCAN; MONOCYTES % (AUTO) 6 % (2-9); NEUTROPHILS # (AUTO) 14.05 x10^3/uL (1.8-6.8); NEUTROPHILS % (AUTO) 90 % (42-75)
[2018-07-17 07:20] VITALS: BP 179/69
[2018-07-17] MEDS ORDERED: POTASSIUM CHLORIDE 20 MEQ TAB.ER.PRT PO SCH (08:00)
[2018-07-17] MEDS ORDERED: MAGNESIUM SULFATE PMX 2GM/50ML 50 ML IV ONE (08:00)
[2018-07-17] MEDS: THIAMINE 100MG TABLET PO SCH (10:15)
[2018-07-17] MEDS: FOLIC ACID 1 MG TABLET PO SCH (10:15)
[2018-07-17 13:16] VITALS: BP 178/69
[2018-07-17] MEDS: ACETAMINOPHEN 325 MG TABLET PO PRN (14:06)
[2018-07-17] MEDS: hydrALAzine 20 MG/ML, 1ML IVPush PRN (14:07)
[2018-07-17 15:34] LABS: ANION GAP 9 mmol/L (5-15); CALCIUM 7.4 mg/dL (8.5-10.1); CHLORIDE 110 mmol/L (98-107)
[2018-07-17] MEDS: GABAPENTIN 100 MG CAPSULE PO SCH (17:17)
[2018-07-17 19:53] VITALS: BP 163/74
[2018-07-17] MEDS: POTASSIUM CHLORIDE 20 MEQ TAB.ER.PRT PO SCH (20:38)
[2018-07-17 22:45] LABS: MICROSCOPIC INDICATED
[2018-07-17 22:50] LABS: MICROSCOPIC INDICATED
[2018-07-18] MEDS: PANTOPROZOLE 40MG TABLET PO SCH ×2 (00:28→12:20)
[2018-07-18 01:30] VITALS: BP 165/69
[2018-07-18] MEDS: OXYcodone/APAP 5/325MG TABLET PO PRN ×2 (04:55→17:35)
[2018-07-18 05:55] LABS: BASOPHILS % (AUTO) 0 % (0-1); EOSINOPHILS # (AUTO) 0.13 x10^3/uL (0-0.4); EOSINOPHILS % (AUTO) 1 % (1-7); LYMPHOCYTES % (AUTO) 5 % (22-44); MD NO; MEAN CORPUSCULAR HEMOGLOBIN 31.1 pg (27.0-34.8); MEAN CORPUSCULAR HGB CONC 34.8 g/dL (32.4-35.8); MEAN CORPUSCULAR VOLUME 89.1 fL (80-100); MEAN PLATELET VOLUME 9.1 fL (7.4-10.4); MONOCYTES # (AUTO) 1.11 x10^3/uL (0.2-0.8); MONOCYTES % (AUTO) 7 % (2-9); NEUTROPHILS # (AUTO) 13.51 x10^3/uL (1.8-6.8); NEUTROPHILS % (AUTO) 87 % (42-75); PLATELET COUNT 237 x10^3/uL (130-400); RED BLOOD COUNT 2.47 x10^6/uL (3.82-5.3); RED CELL DISTRIBUTION WIDTH 16.8 % (9.6-15.2)
[2018-07-18 05:58] LABS: ANION GAP 9 mmol/L (5-15); CALCIUM 6.1 mg/dL (8.5-10.1); CHLORIDE 118 mmol/L (98-107); CREATININE 0.39 mg/dL (0.55-1.02)
[2018-07-18 05:59] LABS: ALANINE AMINOTRANSFERASE 136 U/L (12-78); ALBUMIN 1.1 g/dL (3.4-5.0)
[2018-07-18 06:01] LABS: ALKALINE PHOSPHATASE 64 U/L (45-117); BILIRUBIN,TOTAL 0.5 mg/dL (0.2-1.0); TOTAL PROTEIN 4.2 g/dL (6.4-8.2)
[2018-07-18 07:12] VITALS: BP 166/70
[2018-07-18] MEDS ORDERED: D5%-0.45NACL+KCL 20MEQ 1,000 ML IV SCH ×2 (07:30→20:00)
[2018-07-18] MEDS ORDERED: POTASSIUM CHLORIDE 40 MEQ in SODIUM CHLORIDE 0.9% 500 ML IV ONE ×2 (07:30→11:30)
[2018-07-18] MEDS: SUCRALFATE 1 GM/10 ML UDC PO SCH ×4 (10:09→19:36)
[2018-07-18] MEDS: DOXYCYCLINE 100 MG in DEXTROSE 5% 250 ML IV SCH ×2 (10:10→19:52)
[2018-07-18] MEDS: METOPROLOL SUCCINATE 25 MG TAB.ER.24H PO SCH (10:10)
[2018-07-18] MEDS: THIAMINE 100MG TABLET PO SCH (10:11)
[2018-07-18] MEDS: AMLODIPINE 5 MG TABLET PO SCH (10:11)
[2018-07-18] MEDS: POTASSIUM CHLORIDE 20 MEQ TAB.ER.PRT PO SCH ×3 (10:12→19:34)
[2018-07-18] MEDS: LISINOPRIL 20 MG TABLET PO SCH (10:12)
[2018-07-18] MEDS: FOLIC ACID 1 MG TABLET PO SCH (10:12)
[2018-07-18] MEDS: SERTRALINE 50MG TABLET PO SCH (10:12)
[2018-07-18] MEDS: GABAPENTIN 100 MG CAPSULE PO SCH ×3 (10:12→19:34)
[2018-07-18] MEDS: MEROPENEM 1 GM in SODIUM CHLORIDE 0.9% 100 ML IV SCH ×2 (12:21→20:06)
[2018-07-18 14:30] VITALS: BP 132/51
[2018-07-18] MEDS ORDERED: POTASSIUM PHOSPHATE 44 MEQ in SODIUM CHLORIDE 0.9% 500 ML IV ONE (15:30)
[2018-07-18 18:46] VITALS: BP 140/64
[2018-07-18] MEDS: LORazepam 1MG TABLET PO PRN (19:27)
[2018-07-18 21:40] LABS: BASOPHILS # (AUTO) 0.07 x10^3/uL (0-0.1); BASOPHILS % (AUTO) 1 % (0-1); EOSINOPHILS # (AUTO) 0.19 x10^3/uL (0-0.4); EOSINOPHILS % (AUTO) 1 % (1-7); LYMPHOCYTES # (AUTO) 1.02 x10^3/uL (1-3.4); LYMPHOCYTES % (AUTO) 7 % (22-44); MD NO; MEAN CORPUSCULAR HEMOGLOBIN 29.7 pg (27.0-34.8); MEAN CORPUSCULAR VOLUME 89.9 fL (80-100); MEAN PLATELET VOLUME 8.7 fL (7.4-10.4); MONOCYTES # (AUTO) 1.22 x10^3/uL (0.2-0.8); MONOCYTES % (AUTO) 8 % (2-9); NEUTROPHILS # (AUTO) 12.84 x10^3/uL (1.8-6.8); NEUTROPHILS % (AUTO) 84 % (42-75); PLATELET COUNT 265 x10^3/uL (130-400); RED BLOOD COUNT 2.64 x10^6/uL (3.82-5.3); RED CELL DISTRIBUTION WIDTH 16.4 % (9.6-15.2)
[2018-07-18 21:44] LABS: ANION GAP 7 mmol/L (5-15); CALCIUM 7.3 mg/dL (8.5-10.1); CHLORIDE 112 mmol/L (98-107); CREATININE 0.53 mg/dL (0.55-1.02)
[2018-07-19 00:45] VITALS: BP 136/61
[2018-07-19] MEDS: PANTOPROZOLE 40MG TABLET PO SCH ×2 (01:20→12:38)
[2018-07-19 06:34] LABS: ALANINE AMINOTRANSFERASE 160 U/L (12-78); ALBUMIN 1.5 g/dL (3.4-5.0); ANION GAP 8 mmol/L (5-15); CALCIUM 7.7 mg/dL (8.5-10.1); CHLORIDE 113 mmol/L (98-107); CREATININE 0.54 mg/dL (0.55-1.02)
[2018-07-19 06:36] LABS: ALKALINE PHOSPHATASE 82 U/L (45-117); BILIRUBIN,TOTAL 0.5 mg/dL (0.2-1.0); TOTAL PROTEIN 5.5 g/dL (6.4-8.2)
[2018-07-19 07:09] LABS: MEAN CORPUSCULAR HEMOGLOBIN 29.1 pg (27.0-34.8); MEAN CORPUSCULAR HGB CONC 32.7 g/dL (32.4-35.8); MEAN PLATELET VOLUME 9.4 fL (7.4-10.4); PLATELET COUNT 312 x10^3/uL (130-400); RED BLOOD COUNT 2.79 x10^6/uL (3.82-5.3); RED CELL DISTRIBUTION WIDTH 16.9 % (9.6-15.2)
[2018-07-19 08:00] VITALS: BP 149/80
[2018-07-19 08:05] LABS: BASOPHILS # (AUTO) 0.02 x10^3/uL (0-0.1); BASOPHILS % (AUTO) 0 % (0-1); EOSINOPHILS # (AUTO) 0.09 x10^3/uL (0-0.4); EOSINOPHILS % (AUTO) 1 % (1-7); LYMPHOCYTES # (AUTO) 1.02 x10^3/uL (1-3.4); LYMPHOCYTES % (AUTO) 6 % (22-44); MD SCAN; MONOCYTES # (AUTO) 1.22 x10^3/uL (0.2-0.8); MONOCYTES % (AUTO) 8 % (2-9); NEUTROPHILS # (AUTO) 13.48 x10^3/uL (1.8-6.8); NEUTROPHILS % (AUTO) 85 % (42-75)
[2018-07-19] MEDS: SUCRALFATE 1 GM/10 ML UDC PO SCH ×4 (09:06→20:58)
[2018-07-19] MEDS: GABAPENTIN 100 MG CAPSULE PO SCH ×3 (09:06→16:59)
[2018-07-19] MEDS: MEROPENEM 1 GM in SODIUM CHLORIDE 0.9% 100 ML IV SCH ×2 (09:06→20:57)
[2018-07-19] MEDS: METOPROLOL SUCCINATE 25 MG TAB.ER.24H PO SCH (09:07)
[2018-07-19] MEDS: THIAMINE 100MG TABLET PO SCH (09:08)
[2018-07-19] MEDS: FOLIC ACID 1 MG TABLET PO SCH (09:08)
[2018-07-19] MEDS: LISINOPRIL 20 MG TABLET PO SCH (09:08)
[2018-07-19] MEDS: AMLODIPINE 5 MG TABLET PO SCH (09:08)
[2018-07-19] MEDS: SERTRALINE 50MG TABLET PO SCH (09:08)
[2018-07-19] MEDS: DOXYCYCLINE 100 MG in DEXTROSE 5% 250 ML IV SCH ×2 (10:23→21:42)
[2018-07-19] MEDS ORDERED: SODIUM CHLORIDE 0.9% 1,000 ML IV SCH (10:30)
[2018-07-19] MEDS: SODIUM CHLORIDE 0.9% 1,000 ML IV SCH (10:34)
[2018-07-19] MEDS: LORazepam 1MG TABLET PO PRN (12:38)
[2018-07-19 12:54] LABS: ALBUMIN 1.5 g/dL (3.4-5.0); ANION GAP 9 mmol/L (5-15); CALCIUM 7.7 mg/dL (8.5-10.1); CHLORIDE 110 mmol/L (98-107)
[2018-07-19 12:58] LABS: ALANINE AMINOTRANSFERASE 160 U/L (12-78); ALKALINE PHOSPHATASE 82 U/L (45-117); BILIRUBIN,TOTAL 0.4 mg/dL (0.2-1.0); CREATININE 0.56 mg/dL (0.55-1.02); TOTAL PROTEIN 5.5 g/dL (6.4-8.2)
[2018-07-19 13:45] VITALS: BP 142/83
[2018-07-19 19:30] VITALS: BP 144/66
[2018-07-20] MEDS: SODIUM CHLORIDE 0.9% 1,000 ML IV SCH ×2 (01:51→16:43)
[2018-07-20] MEDS: PANTOPROZOLE 40MG TABLET PO SCH ×2 (01:54→12:51)
[2018-07-20] MEDS: LORazepam 1MG TABLET PO PRN ×2 (02:04→20:21)
[2018-07-20 02:33] VITALS: BP 131/64
[2018-07-20 05:27] LABS: BASOPHILS # (AUTO) 0.06 x10^3/uL (0-0.1); BASOPHILS % (AUTO) 1 % (0-1); EOSINOPHILS # (AUTO) 0.16 x10^3/uL (0-0.4); EOSINOPHILS % (AUTO) 1 % (1-7); LYMPHOCYTES # (AUTO) 1.36 x10^3/uL (1-3.4); LYMPHOCYTES % (AUTO) 11 % (22-44); MD NO; MEAN CORPUSCULAR HGB CONC 32.6 g/dL (32.4-35.8); MEAN CORPUSCULAR VOLUME 88.8 fL (80-100); MEAN PLATELET VOLUME 8.8 fL (7.4-10.4); MONOCYTES # (AUTO) 0.92 x10^3/uL (0.2-0.8); MONOCYTES % (AUTO) 7 % (2-9); NEUTROPHILS # (AUTO) 10.28 x10^3/uL (1.8-6.8); NEUTROPHILS % (AUTO) 80 % (42-75); PLATELET COUNT 321 x10^3/uL (130-400); RED BLOOD COUNT 2.62 x10^6/uL (3.82-5.3); RED CELL DISTRIBUTION WIDTH 16.6 % (9.6-15.2)
[2018-07-20 05:38] LABS: ALANINE AMINOTRANSFERASE 137 U/L (12-78); ALBUMIN 1.3 g/dL (3.4-5.0); ANION GAP 7 mmol/L (5-15); CALCIUM 7.8 mg/dL (8.5-10.1); CHLORIDE 111 mmol/L (98-107)
[2018-07-20 05:41] LABS: ALKALINE PHOSPHATASE 74 U/L (45-117); BILIRUBIN,TOTAL 0.5 mg/dL (0.2-1.0); CREATININE 0.55 mg/dL (0.55-1.02)
[2018-07-20 08:20] VITALS: BP 162/68
[2018-07-20] MEDS: GABAPENTIN 100 MG CAPSULE PO SCH ×3 (09:11→16:43)
[2018-07-20] MEDS: SUCRALFATE 1 GM/10 ML UDC PO SCH ×4 (09:11→20:20)
[2018-07-20] MEDS: FOLIC ACID 1 MG TABLET PO SCH (09:11)
[2018-07-20] MEDS: SERTRALINE 50MG TABLET PO SCH (09:11)
[2018-07-20] MEDS: AMLODIPINE 5 MG TABLET PO SCH (09:15)
[2018-07-20] MEDS: METOPROLOL SUCCINATE 25 MG TAB.ER.24H PO SCH (09:16)
[2018-07-20] MEDS: LISINOPRIL 20 MG TABLET PO SCH (09:16)
[2018-07-20] MEDS: THIAMINE 100MG TABLET PO SCH (09:18)
[2018-07-20] MEDS: DOXYCYCLINE 100 MG in DEXTROSE 5% 250 ML IV SCH ×2 (10:29→22:04)
[2018-07-20] MEDS: MEROPENEM 1 GM in SODIUM CHLORIDE 0.9% 100 ML IV SCH ×2 (10:29→20:21)
[2018-07-20 13:33] VITALS: BP 155/74
[2018-07-20 19:26] VITALS: BP 135/72
[2018-07-21] VITALS (10 sets, daily range): BP systolic 130–168; BP diastolic 54–78
[2018-07-21] MEDS: PANTOPROZOLE 40MG TABLET PO SCH (00:30)
[2018-07-21 05:58] LABS: ALANINE AMINOTRANSFERASE 111 U/L (12-78); ALBUMIN 1.3 g/dL (3.4-5.0); ANION GAP 9 mmol/L (5-15); CALCIUM 7.3 mg/dL (8.5-10.1); CHLORIDE 113 mmol/L (98-107); CREATININE 0.49 mg/dL (0.55-1.02)
[2018-07-21 06:00] LABS: ALKALINE PHOSPHATASE 66 U/L (45-117); BILIRUBIN,TOTAL 0.4 mg/dL (0.2-1.0); TOTAL PROTEIN 4.7 g/dL (6.4-8.2)
[2018-07-21 06:08] LABS: MEAN CORPUSCULAR HEMOGLOBIN 29.7 pg (27.0-34.8); MEAN CORPUSCULAR HGB CONC 33.6 g/dL (32.4-35.8); MEAN CORPUSCULAR VOLUME 88.4 fL (80-100); MEAN PLATELET VOLUME 8.4 fL (7.4-10.4); PLATELET COUNT 355 x10^3/uL (130-400); RED BLOOD COUNT 2.49 x10^6/uL (3.82-5.3); RED CELL DISTRIBUTION WIDTH 16.7 % (9.6-15.2)
[2018-07-21 06:41] LABS: BASOPHILS # (AUTO) 0.06 x10^3/uL (0-0.1); BASOPHILS % (AUTO) 1 % (0-1); EOSINOPHILS # (AUTO) 0.15 x10^3/uL (0-0.4); EOSINOPHILS % (AUTO) 1 % (1-7); LYMPHOCYTES # (AUTO) 1.14 x10^3/uL (1-3.4); LYMPHOCYTES % (AUTO) 10 % (22-44); MD SCAN; MONOCYTES # (AUTO) 0.74 x10^3/uL (0.2-0.8); MONOCYTES % (AUTO) 7 % (2-9); NEUTROPHILS # (AUTO) 8.81 x10^3/uL (1.8-6.8); NEUTROPHILS % (AUTO) 81 % (42-75)
[2018-07-21] MEDS: SODIUM CHLORIDE 0.9% 1,000 ML IV SCH (06:48)
[2018-07-21] MEDS: NITROFURANTOIN 50 MG CAPSULE PO SCH ×2 (07:30→10:28)
[2018-07-21] MEDS ORDERED: [UNRECOGNIZED DRUG - REMARK] MC SCH (08:30)
[2018-07-21] MEDS: SUCRALFATE 1 GM/10 ML UDC PO SCH ×3 (08:39→16:19)
[2018-07-21] MEDS: THIAMINE 100MG TABLET PO SCH (08:40)
[2018-07-21] MEDS: METOPROLOL SUCCINATE 25 MG TAB.ER.24H PO SCH (08:40)
[2018-07-21] MEDS: SERTRALINE 50MG TABLET PO SCH (08:40)
[2018-07-21] MEDS: POTASSIUM CHLORIDE 20 MEQ TAB.ER.PRT PO SCH ×2 (08:40→16:19)
[2018-07-21] MEDS: FOLIC ACID 1 MG TABLET PO SCH (08:40)
[2018-07-21] MEDS: GABAPENTIN 100 MG CAPSULE PO SCH ×3 (08:40→16:19)
[2018-07-21] MEDS: AMLODIPINE 5 MG TABLET PO SCH (08:40)
[2018-07-21] MEDS: LISINOPRIL 20 MG TABLET PO SCH (08:46)
[2018-07-21] MEDS ORDERED: PANTOPROZOLE 40MG TABLET PO SCH (09:00)
[2018-07-21] MEDS: MEROPENEM 1 GM in SODIUM CHLORIDE 0.9% 100 ML IV SCH (09:51)
[2018-07-21] MEDS: DOXYCYCLINE 100 MG in DEXTROSE 5% 250 ML IV SCH (10:31)
[2018-07-21] MEDS ORDERED: POTA20TA6 PO (14:24)
[2018-07-21] MEDS ORDERED: GABA-826 PO (14:24)
[2018-07-21] MEDS ORDERED: SUCR1ORA5 PO (14:24)
[2018-07-21] MEDS ORDERED: MERO1VIA15 IVPB (14:24)
[2018-07-21] MEDS ORDERED: FOLI-17 PO (14:24)
[2018-07-21] MEDS ORDERED: LISI-170 PO (14:24)
[2018-07-21] MEDS ORDERED: THIA100T67 PO (14:24)
[2018-07-21] MEDS ORDERED: PANT40TA5 PO (14:24)
[2018-07-21] MEDS ORDERED: DOXY100V9 IVPB (14:24)
== END 2018-07-21 17:23 | DRG 853 ==
LOC: ED 09:30 → EDIP 10:34 → 4WST 11:31 → 4EST 07-05 15:55 → CCU 07-07 22:40 → 3NW 07-10 15:18 → CSU 07-12 17:32 → 4WST 07-14 15:45
PROVIDERS: ADMIT Hospitalist; ATTEND Hospitalist
PROC: 30233N1 Transfusion of Nonautologous Red Blood Cells into Peripheral Vein, Percutaneous Approach (ICD-10-PCS; 2018-07-03)
PROC: 0DB68ZX Excision of Stomach, Via Natural or Artificial Opening Endoscopic, Diagnostic (ICD-10-PCS; 2018-07-03)
PROC: 0DC68ZZ Extirpation of Matter from Stomach, Via Natural or Artificial Opening Endoscopic (ICD-10-PCS; 2018-07-03)
PROC: 04L33DZ Occlusion of Hepatic Artery with Intraluminal Device, Percutaneous Approach (ICD-10-PCS; 2018-07-12)
PROC: B4101ZZ Fluoroscopy of Abdominal Aorta using Low Osmolar Contrast (ICD-10-PCS; 2018-07-12)
PROC: B4141ZZ Fluoroscopy of Superior Mesenteric Artery using Low Osmolar Contrast (ICD-10-PCS; 2018-07-12)
PROC: B4121ZZ Fluoroscopy of Hepatic Artery using Low Osmolar Contrast (ICD-10-PCS; 2018-07-12)
PROC: B41D1ZZ Fluoroscopy of Aorta and Bilateral Lower Extremity Arteries using Low Osmolar Contrast (ICD-10-PCS; 2018-07-13)
PROC: 04CC0ZZ Extirpation of Matter from Right Common Iliac Artery, Open Approach (ICD-10-PCS; principal; 2018-07-13 10:00)
DX: A41.9 Sepsis, unspecified organism (principal); E43 Unspecified severe protein-calorie malnutrition; J96.21 Acute and chronic respiratory failure with hypoxia; N17.0 Acute kidney failure with tubular necrosis; K26.4 Chronic or unspecified duodenal ulcer with hemorrhage; G92 Toxic encephalopathy; J18.9 Pneumonia, unspecified organism; D62 Acute posthemorrhagic anemia; E80.1 Porphyria cutanea tarda; L97.929 Non-pressure chronic ulcer of unspecified part of left lower leg with unspecified severity; I74.5 Embolism and thrombosis of iliac artery; I50.42 Chronic combined systolic (congestive) and diastolic (congestive) heart failure; J44.0 Chronic obstructive pulmonary disease with (acute) lower respiratory infection; K81.0 Acute cholecystitis; L97.829 Non-pressure chronic ulcer of other part of left lower leg with unspecified severity; E87.2 Acidosis; B37.49 Other urogenital candidiasis; E83.39 Other disorders of phosphorus metabolism; E83.42 Hypomagnesemia; E87.6 Hypokalemia; F17.210 Nicotine dependence, cigarettes, uncomplicated; G43.909 Migraine, unspecified, not intractable, without status migrainosus; I11.0 Hypertensive heart disease with heart failure; I27.20 Pulmonary hypertension, unspecified; I73.00 Raynaud's syndrome without gangrene; F10.10 Alcohol abuse, uncomplicated; B95.2 Enterococcus as the cause of diseases classified elsewhere; F41.9 Anxiety disorder, unspecified; K58.9 Irritable bowel syndrome, unspecified; I99.8 Other disorder of circulatory system; T42.4X5A Adverse effect of benzodiazepines, initial encounter; Z66 Do not resuscitate; R74.8 Abnormal levels of other serum enzymes; K83.8 Other specified diseases of biliary tract; I73.9 Peripheral vascular disease, unspecified; Z51.5 Encounter for palliative care; Z82.49 Family history of ischemic heart disease and other diseases of the circulatory system; Z90.710 Acquired absence of both cervix and uterus; Z90.89 Acquired absence of other organs; Z68.23 Body mass index [BMI] 23.0-23.9, adult; Z85.820 Personal history of malignant melanoma of skin; Z88.0 Allergy status to penicillin; Z99.81 Dependence on supplemental oxygen; Z79.899 Other long term (current) drug therapy; Z88.2 Allergy status to sulfonamides; Z88.5 Allergy status to narcotic agent; Z80.8 Family history of malignant neoplasm of other organs or systems
CPT/HCPCS: 36247; 36415; 36430; 36600; 37244; 71045; 75710; 75726; 76700; 78226; 80048; 80053; 80307; 82040; 82607; 82803; 83605; 83735; 84100; 84443; 85014; 85018; 85025; 85610; 86850; 86900; 86923; 87040; 87077; 87081; 87086; 87106; 87186; 88305; 93005; 93922; 96374; 96375; 99291; C1894; G0378; J0690; J0696; J1100; J1644; J2185; J2250; J2405; J2704; J2720; J3010; J3411; J3475; J3480; J3486; J3490; J7042; J7060; J7070; Q9966; A9537; C1751; C1757; C1760; C1769; C9113; C9898; J0360; J1630; J2060; J2440; J7030; J7040; P9016; S0074

== ENCOUNTER 2018-08-18 17:52 | Inpatient (IN) | payer MEDICARE ==
[~2018-08-18] VITALS: Ht 160 cm; Wt 48.3 kg
[~2018-08-18 17:52] MED LIST changes: +ALBU8.5H8 INH; +DOXY100V9 IVPB; +FOLI-17 PO; +GABA-826 PO; +MERO1VIA15 IVPB; +NAPR220C2 PO; +POTA20TA6 PO; +SUCR1ORA5 PO; +THIA100T67 PO
[2018-08-18] MEDS ORDERED: SODIUM CHLORIDE FLUSH 10ML SYR IVF ONE (18:00)
[2018-08-18] MEDS ORDERED: AMLO2.5T3 PO (18:17)
[2018-08-18] MEDS ORDERED: NITR0.6T4 SL (18:17)
[2018-08-18] MEDS ORDERED: ALBU6.7H INH (18:17)
[2018-08-18] MEDS ORDERED: IRON SULFATE PO (18:17)
[2018-08-18] MEDS ORDERED: MILK OF MAGNESIA (18:17)
[2018-08-18] MEDS ORDERED: MULT1TAB59 PO (18:17)
[2018-08-18] MEDS ORDERED: ACET650S21 PO (18:17)
[2018-08-18] MEDS ORDERED: METOPROLOL PO (18:17)
[2018-08-18] MEDS ORDERED: ONDA4TAB7 PO (18:17)
[2018-08-18 18:20] LABS: BASOPHILS # (AUTO) 0.03 x10^3/uL (0-0.1); BASOPHILS % (AUTO) 0 % (0-1); EOSINOPHILS # (AUTO) 0.21 x10^3/uL (0-0.4); EOSINOPHILS % (AUTO) 3 % (1-7); LYMPHOCYTES # (AUTO) 1.78 x10^3/uL (1-3.4); LYMPHOCYTES % (AUTO) 23 % (22-44); MD NO; MEAN CORPUSCULAR HEMOGLOBIN 28.4 pg (27.0-34.8); MEAN CORPUSCULAR HGB CONC 32.4 g/dL (32.4-35.8); MEAN CORPUSCULAR VOLUME 87.4 fL (80-100); MEAN PLATELET VOLUME 7.9 fL (7.4-10.4); MONOCYTES # (AUTO) 0.58 x10^3/uL (0.2-0.8); MONOCYTES % (AUTO) 8 % (2-9); NEUTROPHILS # (AUTO) 5.11 x10^3/uL (1.8-6.8); NEUTROPHILS % (AUTO) 66 % (42-75); PLATELET COUNT 366 x10^3/uL (130-400); RED BLOOD COUNT 3.31 x10^6/uL (3.82-5.3); RED CELL DISTRIBUTION WIDTH 19.8 % (9.6-15.2)
[2018-08-18 18:28] LABS: ALANINE AMINOTRANSFERASE 20 U/L (12-78); ALBUMIN 2.9 g/dL (3.4-5.0); ANION GAP 11 mmol/L (5-15); CALCIUM 8.5 mg/dL (8.5-10.1); CHLORIDE 110 mmol/L (98-107); CREATININE 0.85 mg/dL (0.55-1.02)
[2018-08-18 18:29] LABS: INTERNATIONAL NORMALIZED RATIO 1.08 (0.93-1.1); PROTHROMBIN TIME 11.1 Seconds (9.6-11.5)
[2018-08-18 18:33] LABS: ALKALINE PHOSPHATASE 104 U/L (45-117); BILIRUBIN,TOTAL 0.4 mg/dL (0.2-1.0); TOTAL PROTEIN 7.3 g/dL (6.4-8.2)
[2018-08-18] MEDS ORDERED: SODIUM CHLORIDE FLUSH 10ML SYR IVF PRN (19:30)
[2018-08-18] MEDS ORDERED: HYDROcodone/APAP 5/325 TABLET ONE (19:39)
[2018-08-18] MEDS ORDERED: HYDROcodone/APAP 5/325 TABLET PO ONE (20:00)
[2018-08-18 20:58] VITALS: BP 184/79
[2018-08-18] MEDS ORDERED: ALBUTEROL SULFATE 2.5 MG INH SCH (21:00)
[2018-08-18] MEDS ORDERED: POLYETHYLENE GLYCOL 17 GM PACKET PO PRN (21:00)
[2018-08-18] MEDS ORDERED: HYDROmorphone 2 MG/ML, 1ML IVPush PRN (21:00)
[2018-08-18] MEDS ORDERED: BISACODYL 10 MG SUPP PR PRN (21:00)
[2018-08-18] MEDS ORDERED: POTASSIUM CHLORIDE 40 MEQ in SODIUM CHLORIDE 0.9% 500 ML IV ONE (21:00)
[2018-08-18] MEDS ORDERED: PROMETHAZINE 25 MG/ML, 1ML IM PRN (21:00)
[2018-08-18] MEDS ORDERED: ALBUTEROL SULFATE 2.5 MG/3 ML HHN PRN (21:00)
[2018-08-18] MEDS ORDERED: hydrALAzine 20 MG/ML, 1ML IVPush PRN (21:00)
[2018-08-18] MEDS ORDERED: ONDANSETRON 2MG/ML, 2ML IVPush PRN (21:00)
[2018-08-18] MEDS ORDERED: ONDANSETRON ODT 4 MG PO PRN (21:00)
[2018-08-18] MEDS ORDERED: LABETALOL 5MG/ML, 20ML IVPush PRN (21:00)
[2018-08-18] MEDS ORDERED: DOCUSATE 100 MG CAPSULE PO PRN (21:00)
[2018-08-18 21:12] LABS: FREE T4 (FREE THYROXINE) 1.01 ng/dL (0.76-1.46); THYROID STIMULATING HORMONE 1.37 mIU/L (0.358-3.740)
[2018-08-18] MEDS: FERROUS SULFATE 325 MG TABLET PO SCH (21:20)
[2018-08-18] MEDS: METOPROLOL TARTRATE 25 MG TABLET PO SCH (21:20)
[2018-08-18] MEDS: GABAPENTIN 100 MG CAPSULE PO SCH (21:20)
[2018-08-18] MEDS: SUCRALFATE 1 GM TABLET PO SCH (21:20)
[2018-08-18 21:50] LABS: CULTURE INDICATED? YES; MICROSCOPIC AUTO
[2018-08-18] MEDS: OXYcodone IR 5MG TABLET PO PRN (21:55)
[2018-08-18] MEDS ORDERED: ALBUTEROL SULFATE 2.5 MG/3 ML NPPB PRN (22:00)
[2018-08-18 22:15] VITALS: BP 185/75
[2018-08-18 22:46] VITALS: BP 177/76
[2018-08-19] VITALS: BP 169/67
[2018-08-19 03:32] VITALS: BP 159/71
[2018-08-19] MEDS: OXYcodone IR 5MG TABLET PO PRN ×4 (03:33→21:40)
[2018-08-19 05:49] LABS: CHLORIDE 114 mmol/L (98-107)
[2018-08-19 05:55] LABS: ALANINE AMINOTRANSFERASE 19 U/L (12-78); ALBUMIN 2.4 g/dL (3.4-5.0); ALKALINE PHOSPHATASE 84 U/L (45-117); ANION GAP 10 mmol/L (5-15); BILIRUBIN,TOTAL 0.6 mg/dL (0.2-1.0); CALCIUM 8.3 mg/dL (8.5-10.1); CHOL/HDL RATIO 2.7; CHOLESTEROL, TOTAL 137 mg/dL (140-239); CREATININE 0.64 mg/dL (0.55-1.02); HDL CHOL % 36 % (28-40); HDL CHOLESTEROL (DIRECT) 50 mg/dL (40-60); LDL CHOLESTEROL,CALCULATED 60 mg/dL (54-169); LDL/HDL RATIO 1.2 (0.5-3.0); TOTAL PROTEIN 6.2 g/dL (6.4-8.2); TRIGLYCERIDES 135 mg/dL (50-200); VLDL CHOLESTEROL 27 mg/dL (0-25)
[2018-08-19 06:31] LABS: BASOPHILS # (AUTO) 0.06 x10^3/uL (0-0.1); BASOPHILS % (AUTO) 1 % (0-1); EOSINOPHILS # (AUTO) 0.31 x10^3/uL (0-0.4); EOSINOPHILS % (AUTO) 5 % (1-7); LYMPHOCYTES # (AUTO) 1.79 x10^3/uL (1-3.4); LYMPHOCYTES % (AUTO) 29 % (22-44); MD NO; MEAN CORPUSCULAR HEMOGLOBIN 27.9 pg (27.0-34.8); MEAN CORPUSCULAR HGB CONC 31.8 g/dL (32.4-35.8); MEAN CORPUSCULAR VOLUME 87.8 fL (80-100); MEAN PLATELET VOLUME 8.2 fL (7.4-10.4); MONOCYTES # (AUTO) 0.47 x10^3/uL (0.2-0.8); MONOCYTES % (AUTO) 8 % (2-9); NEUTROPHILS % (AUTO) 58 % (42-75); PLATELET COUNT 336 x10^3/uL (130-400); RED BLOOD COUNT 3.02 x10^6/uL (3.82-5.3); RED CELL DISTRIBUTION WIDTH 19.9 % (9.6-15.2)
[2018-08-19 06:57] VITALS: BP 161/68
[2018-08-19] MEDS ORDERED: MAGNESIUM SULFATE PMX 2GM/50ML 50 ML IV ONE (08:00)
[2018-08-19] MEDS: SERTRALINE 50MG TABLET PO SCH (08:10)
[2018-08-19] MEDS: FOLIC ACID 1 MG TABLET PO SCH (08:10)
[2018-08-19] MEDS: METOPROLOL TARTRATE 25 MG TABLET PO SCH ×2 (08:10→21:40)
[2018-08-19] MEDS: FERROUS SULFATE 325 MG TABLET PO SCH ×2 (08:11→21:39)
[2018-08-19] MEDS: LISINOPRIL 20 MG TABLET PO SCH (08:11)
[2018-08-19] MEDS: GABAPENTIN 100 MG CAPSULE PO SCH ×3 (08:11→17:00)
[2018-08-19] MEDS: (Umeclidinium Brm/Vilanterol Tr (Anoro Ellipta 62.5-25 Mcg Inh INH SCH (08:11)
[2018-08-19] MEDS: SUCRALFATE 1 GM TABLET PO SCH ×4 (08:11→21:40)
[2018-08-19] MEDS: THIAMINE 100MG TABLET PO SCH (08:11)
[2018-08-19] MEDS: MULTIVITAMINS WITH IRON TABLET PO SCH (08:11)
[2018-08-19] MEDS: AMLODIPINE 2.5 MG TABLET PO SCH (08:11)
[2018-08-19] MEDS: PANTOPROZOLE 40MG TABLET PO SCH ×2 (08:17→17:00)
[2018-08-19 12:47] VITALS: BP 151/65
[2018-08-19] MEDS ORDERED: LIDOCAINE-MPF 1%, 5ML ONE ×2 (13:39→14:06)
[2018-08-19] MEDS ORDERED: FENTANYL PF 100 MCG/2ML ONE ×2 (13:54)
[2018-08-19] MEDS ORDERED: NALOXONE 1 MG/ML, 2ML ONE (13:55)
[2018-08-19 15:24] VITALS: BP 156/67
[2018-08-19 18:37] VITALS: BP 154/65
[2018-08-19] MEDS ORDERED: DIPHENHYDRAMINE 12.5MG/5ML, 10ML UDC PO ONE (21:30)
[2018-08-19] MEDS ORDERED: DIPHENHYDRAMINE 50 MG CAPSULE PO ONE (22:00)
[2018-08-20 02:00] VITALS: BP 157/58
[2018-08-20 05:17] LABS: BASOPHILS # (AUTO) 0.04 x10^3/uL (0-0.1); BASOPHILS % (AUTO) 1 % (0-1); EOSINOPHILS # (AUTO) 0.35 x10^3/uL (0-0.4); EOSINOPHILS % (AUTO) 5 % (1-7); LYMPHOCYTES # (AUTO) 1.53 x10^3/uL (1-3.4); LYMPHOCYTES % (AUTO) 22 % (22-44); MD NO; MEAN CORPUSCULAR HEMOGLOBIN 28.3 pg (27.0-34.8); MEAN CORPUSCULAR HGB CONC 32.2 g/dL (32.4-35.8); MEAN CORPUSCULAR VOLUME 87.7 fL (80-100); MEAN PLATELET VOLUME 8.1 fL (7.4-10.4); MONOCYTES # (AUTO) 0.57 x10^3/uL (0.2-0.8); MONOCYTES % (AUTO) 8 % (2-9); NEUTROPHILS # (AUTO) 4.46 x10^3/uL (1.8-6.8); NEUTROPHILS % (AUTO) 64 % (42-75); PLATELET COUNT 308 x10^3/uL (130-400); RED BLOOD COUNT 3.11 x10^6/uL (3.82-5.3)
[2018-08-20 05:30] LABS: CHLORIDE 110 mmol/L (98-107)
[2018-08-20 05:35] LABS: ANION GAP 7 mmol/L (5-15); CALCIUM 8.7 mg/dL (8.5-10.1); CREATININE 0.74 mg/dL (0.55-1.02)
[2018-08-20] MEDS: OXYcodone IR 5MG TABLET PO PRN ×2 (05:57→12:16)
[2018-08-20 07:34] VITALS: BP 150/67
[2018-08-20] MEDS: (Umeclidinium Brm/Vilanterol Tr (Anoro Ellipta 62.5-25 Mcg Inh INH SCH (08:51)
[2018-08-20] MEDS: THIAMINE 100MG TABLET PO SCH (09:30)
[2018-08-20] MEDS: SUCRALFATE 1 GM TABLET PO SCH ×3 (09:30→16:24)
[2018-08-20] MEDS: METOPROLOL TARTRATE 25 MG TABLET PO SCH (09:31)
[2018-08-20] MEDS: FOLIC ACID 1 MG TABLET PO SCH (09:31)
[2018-08-20] MEDS: PANTOPROZOLE 40MG TABLET PO SCH ×2 (09:31→16:24)
[2018-08-20] MEDS: AMLODIPINE 2.5 MG TABLET PO SCH (09:31)
[2018-08-20] MEDS: FERROUS SULFATE 325 MG TABLET PO SCH (09:31)
[2018-08-20] MEDS: MULTIVITAMINS WITH IRON TABLET PO SCH (09:31)
[2018-08-20] MEDS: LISINOPRIL 20 MG TABLET PO SCH (09:31)
[2018-08-20] MEDS: GABAPENTIN 100 MG CAPSULE PO SCH ×3 (09:31→16:24)
[2018-08-20] MEDS: SERTRALINE 50MG TABLET PO SCH (09:31)
[2018-08-20] MEDS ORDERED: OXYC5TAB3 PO (10:42)
[2018-08-20 12:53] VITALS: BP 163/67
== END 2018-08-20 17:27 | DRG 252 ==
LOC: ED 18:10 → EDIP 20:08 → 4EST 20:43
PROVIDERS: ADMIT Internal Medicine; ATTEND Family Medicine
PROC: 06H03DZ Insertion of Intraluminal Device into Inferior Vena Cava, Percutaneous Approach (ICD-10-PCS; principal; 2018-08-19)
DX: I82.401 Acute embolism and thrombosis of unspecified deep veins of right lower extremity (principal); E43 Unspecified severe protein-calorie malnutrition; E80.1 Porphyria cutanea tarda; L97.929 Non-pressure chronic ulcer of unspecified part of left lower leg with unspecified severity; J96.10 Chronic respiratory failure, unspecified whether with hypoxia or hypercapnia; J44.0 Chronic obstructive pulmonary disease with (acute) lower respiratory infection; Z68.1 Body mass index [BMI] 19.9 or less, adult; D64.9 Anemia, unspecified; E87.6 Hypokalemia; F17.200 Nicotine dependence, unspecified, uncomplicated; G43.909 Migraine, unspecified, not intractable, without status migrainosus; I11.0 Hypertensive heart disease with heart failure; I27.20 Pulmonary hypertension, unspecified; I50.9 Heart failure, unspecified; I73.00 Raynaud's syndrome without gangrene; I99.8 Other disorder of circulatory system; Z90.710 Acquired absence of both cervix and uterus; Z99.81 Dependence on supplemental oxygen; Z87.11 Personal history of peptic ulcer disease; Z79.899 Other long term (current) drug therapy
CPT/HCPCS: 36415; 37191; 80048; 80053; 80061; 81001; 83036; 83605; 83735; 83880; 84439; 84443; 85025; 85610; 85730; 87086; 93005; 99285; C1880; G0378; J3010; J3480; C1769; J0360; J2310; J3475; J7040